=== PATIENT | female | born 2000 | race Caucasian/White ===

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

== ENCOUNTER 2021-03-19 07:27 | Emergency (ER) | payer MEDICAID ==
[~2021-03-19] VITALS: Ht 170.2 cm; Wt 72.6 kg
[2021-03-19 07:30] VITALS: BP 107/89
--- NOTE | 2021-03-19 07:30 | NUR ---
Pt BIBA taken to bed 7.
--- NOTE | 2021-03-19 07:34 | NUR ---
20 Y/O NON-VERBAL FEMALE BIBA S/P FALL AT BOARDING HOME WHILE BEING ASSISTED TO SHOWER. PER MEDIC IT WAS A WITNESSED FALL AND NURSE ASSISTED PT TO THE FLOOR. PER MEDIC, RN DENIES LOC. SMALL LACERATION NOTED ABOVE LEFT EYEBROW, NO ACTIVE BLEEDING. GCS 9 NORMAL FOR PT BASELINE. DENIES N/V, DENIES FEVER/CHILLS. PMH: EPILEPSY, AUTISM, ID, AND ADHD ALLERGEIS: SULFA
--- NOTE | 2021-03-19 07:36 | NUR ---
Dr. Gallegos at pt bedside for further evaluation.
--- NOTE | 2021-03-19 07:56 | NUR ---
Pt taken to CT via [facility].
--- NOTE | 2021-03-19 08:09 | NUR ---
Patient returned from CT via gurney to bed 7.
--- NOTE | 2021-03-19 08:29 | NUR ---
Pt resting in bed, warm blanket provided, suicide precutions in place, will continue to monitor.
--- NOTE | 2021-03-19 10:02 | NUR ---
Pt sleeping, visible equal rise and fall of chest, VSS, will continue to monitor.
--- NOTE | 2021-03-19 12:04 | NUR ---
Pt awake, HOB elevated, VSS, will continue to monitor.
[2021-03-19 12:42] VITALS: BP 102/62
--- NOTE | 2021-03-19 12:43 | NUR ---
Patient discharged with v/s stable. Written and verbal after care instructions given and explained. Patient verbalized understanding. PATIENT TAKEN BY [facility]. All questions addressed prior to discharge. Advised to follow up with PMD.
== END 2021-03-19 12:43 ==
LOC: MED 07:27
DX: S01.111A Laceration without foreign body of right eyelid and periocular area, initial encounter (principal); R62.50 Unspecified lack of expected normal physiological development in childhood; F84.0 Autistic disorder; Z88.6 Allergy status to analgesic agent; W19.XXXA Unspecified fall, initial encounter; Y93.E1 Activity, personal bathing and showering; Y92.89 Other specified places as the place of occurrence of the external cause; Y99.8 Other external cause status
CPT/HCPCS: 70450; 81025; 90471; 90715; 99284

== ENCOUNTER 2021-11-08 23:33 | Emergency (ER) | payer MEDICAID ==
[~2021-11-08] VITALS: Ht 160 cm; Wt 68.0 kg
[2021-11-08 23:47] VITALS: BP 118/52
--- NOTE | 2021-11-08 23:47 | NUR ---
PT TAKEN TO BED 10B.
--- NOTE | 2021-11-09 00:04 | NUR ---
20 YO F COLT FROM [facility] WITH C/C LAC TO R EYEBROW S/P WITNESSED FALL. PER EMS PT WAS TRYING TO GET OUT OF BED, ARM WENT THROUGH RAILS AND HEAD HIT SIDE RAIL. PER EMS CAREGIVER WITNESSED FALL. HX:HEMOPHILIA, ANEURYSM, MENTALLY DISABLED, AUTISM, ALT HEMIPLEGIA, ADHD, SEIZURE RX:OXCARBAZEPINE, OLANZIPINE
--- NOTE | 2021-11-09 00:04 | NUR ---
PT IN CT.
--- NOTE | 2021-11-09 00:19 | NUR ---
PT BACK FROM CT.
[2021-11-09] MEDS ORDERED: LORazepam 2 MG/ML VIAL IM ONE (00:40)
[2021-11-09] MEDS ORDERED: LIDOCAINE/EPI 2% 1:100000 20 ML VIAL INJ ONE (02:45)
[2021-11-09] MEDS ORDERED: BACITRACIN OINT 500 UNITS/GM PKT TP ONE (03:15)
[2021-11-09] MEDS ORDERED: BACI1PAC6 TP (03:20)
--- NOTE | 2021-11-09 03:47 | NUR ---
pt cleared by rory guaman for discharge. waiting on transport. pt has eyes closed, opens eyes to touch. equal rise and fall of chest wall. vss. pt is in stable condition. bed locked in lowest position, side rails x2 for safety.
--- NOTE | 2021-11-09 04:08 | NUR ---
[facility] CALLED FOR TRANSPORT AND WAS TOLD PT DID NOT REQUIRE BLS AND WAS GIVEN PHONE NUMBERS FOR [facility], [facility], AND [facility]. CALLED EACH FACILITY. [facility] DOES NOT TAKE PT INSURANCE, [facility]SPORT RESERVATIONS FULL, [facility] DOES NOT SERVE COUNTY ANYMORE. [facility] NUMBER OUT OF SERVICE. [facility] CALLED BUT DID NOT RECIEVE ANSWER. CALLED [facility] AND LEFT MESSAGE.
--- NOTE | 2021-11-09 04:41 | NUR ---
called and left a message to leigh regarding pt's discharged and transport set up.
--- NOTE | 2021-11-09 04:51 | NUR ---
pt has eyes closed, opens to touch. equal rise and fall of chest wall. vss. pt is in stable condition. all needs met at this time. bed locked in lowest position. side rails x2 for safety.
--- NOTE | 2021-11-09 07:31 | NUR ---
Report and continuation of care received from DENTON Brown.
--- NOTE | 2021-11-09 07:31 | NUR ---
Pt report given to AUDI CHAWLA. Transfer of care at this time.
--- NOTE | 2021-11-09 07:45 | NUR ---
Patient laying on left side with both eyes closed. quality assurance monitor body in place. Equal chest rise and fall. Bed locked in lowest position, side rails x 2. No distress noted.
--- NOTE | 2021-11-09 09:24 | NUR ---
patient with both eyes open laying in left side. Bed locked in lowest position, side rails x 2. Equal chest rise and fall. No distress noted.
[2021-11-09 10:31] VITALS: BP 107/61
--- NOTE | 2021-11-09 10:35 | NUR ---
Contacted Мария and gave report; advised to return to ER in 7 days for suture removal.
--- NOTE | 2021-11-09 10:36 | NUR ---
Patient discharged with v/s stable. Written and verbal after care instructions given and explained to clinical staff educator via telephone call at [facility]. Wheel Chair Assisted by caregiver, Breanna. All questions addressed prior to discharge. ID band removed. Patient advised to follow up with PMD. Rx of Bacitracin Zinc given. Patient educated on indication of medication including possible reaction and side effects. Opportunity to ask questions provided and answered.
--- NOTE | 2021-11-09 10:38 | NUR ---
Transportation at bedside
== END 2021-11-09 10:36 ==
LOC: MED 23:33
DX: S01.111A Laceration without foreign body of right eyelid and periocular area, initial encounter (principal); D66 Hereditary factor VIII deficiency; W20.8XXA Other cause of strike by thrown, projected or falling object, initial encounter; Y93.89 Activity, other specified; Y92.89 Other specified places as the place of occurrence of the external cause; Y99.8 Other external cause status
CPT/HCPCS: 12013; 70450; 96372; 99285; J2001; J2060